=== PATIENT | male | born 1950 | race Caucasian/White ===

== ENCOUNTER 2018-04-07 12:49 | Emergency (ER) | payer MEDICARE ==
[~2018-04-07 12:49] MED LIST: ADVA250A INH; AMLO5TAB2 PO; ASPI81TA22 PO; ATOR20TA15 PO; BILB30CA PO; DIAZ10TA PO; GABA300C5 PO; GLIM2TAB PO; IBUP1TAB5 PO; LAMO100T PO; LEVEMIR SQ; LISI10TA3 PO; METF500T PO; METO1TAB9 PO; NOVOLOGP2 SQ; OXYC-395 PO; OXYC1TAB36 PO; PANT40TA3 PO; SERT-129 PO; TAMS5CAP PO; TRAZ100T10 PO
[2018-04-07 12:58] VITALS: BP 170/78; PULSE 92; RESP 19; TEMP 98.4; O2SAT 98
[2018-04-07 13:21] VITALS: O2SAT 98
[2018-04-07 13:32] LABS: AUTOMATED NEUTROPHIL # 5.1 TH/MM3 (1.8-7.7); BASOPHIL % 0.7 % (0.0-2.0); EOSINOPHIL # 0.1 TH/MM3 (0-0.4); EOSINOPHIL % 1.9 % (0.0-4.0); HEMATOCRIT 43.2 % (39.0-51.0); HEMOGLOBIN 14.9 GM/DL (13.0-17.0); LYMPH % 20.8 % (9.0-44.0); LYMPHOCYTE # 1.5 TH/MM3 (1.0-4.8); MEAN CORPUSCULAR HEMOGLOBIN 30.5 PG (27.0-34.0); MEAN CORPUSCULAR HGB CONC 34.6 % (32.0-36.0); MEAN PLATELET VOLUME 7.5 FL (7.0-11.0); MONO % 5.9 % (0.0-8.0); MONOCYTE # 0.4 TH/MM3 (0-0.9); NEUT % 70.7 % (16.0-70.0); PLATELET COUNT 221 TH/MM3 (150-450); RED BLOOD COUNT 4.91 MIL/MM3 (4.50-5.90); RED CELL DISTRIBUTION WIDTH 14.2 % (11.6-17.2); WHITE BLOOD COUNT 7.2 TH/MM3 (4.0-11.0)
[2018-04-07 13:58] LABS: BICARBONATE 25.5 MEQ/L (21.0-32.0); BLOOD UREA NITROGEN 17 MG/DL (7-18); CALCIUM 8.9 MG/DL (8.5-10.1); CHLORIDE 107 MEQ/L (98-107); CREATININE 1.22 MG/DL (0.60-1.30); GLOMERULAR FILTRATION RATE 60 ML/MIN (>89); GLUCOSE,RANDOM 249 MG/DL (74-106); SODIUM (NA) 141 MEQ/L (136-145); TROPONIN I LESS THAN 0.02 NG/ML (0.02-0.05)
--- NOTE | 2018-04-07 14:08 | RADRPT ---
EXAM DATE: 04/07/2018 1:56 PM EDT AGE/SEX: 67 years / Male INDICATIONS: Short of breath. CLINICAL DATA: This is the patient's initial encounter. Patient reports that signs and symptoms have been present for 1 day and indicates a pain score of 0/10. MEDICAL/SURGICAL HISTORY: Emphysema. On O2 sometimes None. [place] [facility] [place]. . FINDINGS: Mild airspace disease at the left lung base. Cardiomediastinal contours are stable. Osseous structure s are intact. CONCLUSION: 1. Left lung base airspace disease which likely reflects atelectasis. Differential considerations in clude pneumonia and aspiration in the appropriate clinical setting. Electronically signed by: Roberto Singh MD 04/07/2018 2:06 PM EDT
[2018-04-07 14:14] VITALS: BP 158/84; PULSE 106; RESP 18; O2SAT 98
--- NOTE | 2018-04-07 14:43 | PD ---
HPI Chief Complaint: General Weakness Time Seen by Provider: 14:04 Travel History International Travel<30 days: No Contact w/Intl Traveler<30days: No History of Present Illness HPI Patient is a 67-year-old male presenting to the emergency department for evaluation of dizziness. Patient states he felt dizzy this morning, he reports falling and hitting his head. He states he does not remember what happened initially after the fall. He denies any nausea, vomiting, shortness of breath, visual changes. Patient called 911 himself. He states immediately after he fell he experienced chest pain in the right anterior chest wall. He then reported that the same chest pain has been present for 2 weeks and he felt a lump on his chest. Patient states the pain is reproducible on palpation. Patient reports a history of chronic back pain, he takes oxycodone for this. He also reportedly smokes marijuana occasionally. He states he rolled a joint this morning but did not smoke it. Per the triage assessment patient stated that he felt weak couldn't walk, his heart stopped earlier, he also reportedly smoked pot laced with heroin 1 week ago, headaches x weeks. He stated to me that the headache just started after he fell today. He also reported that he could not remember what happened immediately after the fall but then started talking about the chest pain when he fell. Patient's story continues to change as he is interviewed. PFSH Past Medical History Bipolar Disorder: Yes Depression: Yes High Cholesterol: Yes COPD: Yes Diabetes: Yes Patient Takes Glucophage: Yes Diminished Hearing: No GERD: Yes Hypertension: Yes Insomnia: Yes Musculoskeletal: Yes (back,legs arms) Neurologic: No Psychiatric: Yes (DELUSIONS, DEPRESSION, ANXIETY) Respiratory: Yes Migraines: Yes Triglycerides - High: Yes Tetanus Vaccination: > 5 Years Past Surgical History Pacemaker: No Other Surgery: Yes (2 back surgerys) Social History Alcohol Use: No Tobacco Use: No Substance Use: No Allergies-Medications (Allergen,Severity, Reaction): Coded Allergies: ciprofloxacin (Unverified Allergy, Severe, RASHES, 04/07/18) penicillin G (Unverified Allergy, Severe, RASH, 04/07/18) *MDRO Multi-Drug Resistant Organism (Verified Adverse Reaction, Unknown, ) MRSA (sputum) - 11/2012, 12/2012 MRSA PCR Screen #1 - NEGATIVE, 03/09/2015 Reported Meds & Prescriptions Reported Meds & Active Scripts Active Ibuprofen 400 Mg Tab 400 Mg PO Q8H PRN Flomax (Tamsulosin HCl) 0.4 Mg Cap 0.4 Mg PO HS Reported Trazodone (Trazodone HCl) 100 Mg Tablet 100 Mg PO BID Sertraline (Sertraline HCl) 100 Mg Tab 100 Mg PO DAILY Pantoprazole (Pantoprazole Sodium) 40 Mg Tab 40 Mg PO DAILY Novolog Inj (Insulin Aspart) 1,000 Unit/10 Ml Vial 20 Units SQ Metoprolol Succinate ER 24 HR (Metoprolol Succinate) 50 Mg Tab 50 Mg PO BID Metformin (Metformin HCl) 500 Mg Tab 500 Mg PO BIDPC Lisinopril 10 Mg Tab 10 Mg PO DAILY Levemir Inj (Insulin Detemir) 1,000 unit/ 10 ML Vial 10 Units SQ BID Do not mix with any other Insulin. Lamotrigine 100 Mg Tab 100 Mg PO DAILY Oxycodone-Acetaminophen 10-325 mg Tab 1 Tab PO Q8HR PRN Glimepiride 2 Mg Tab 2 Mg PO DAILY Take with breakfast or first main meal Gabapentin 300 Mg Cap 300 Mg PO TID Diazepam 10 Mg Tab 10 Mg PO TID PRN Bilberry Extract 30 Mg Cap 500 Mg PO BID Atorvastatin (Atorvastatin Calcium) 20 Mg Tab 20 Mg PO DAILY Aspirin EC Low Dose (Aspirin) 81 Mg Tabec 81 Mg PO DAILY Amlodipine (Amlodipine Besylate) 5 Mg Tab 5 Mg PO DAILY Advair Diskus Inh (Fluticasone-Salmeterol Inh) 250-50 Mcg/Blist Aer 1 Puff INH BID Rinse mouth after use. Advair Diskus Inh (Fluticasone-Salmeterol Inh) 250-50 Mcg/Blist Aer 1 Puff INH BID Rinse mouth after use. Oxycodone (Oxycodone HCl) 10 Mg Tab 10 Mg PO Q6H PRN Review of Systems Except as stated in HPI: all other systems reviewed are Neg Eyes: No: Blurred Vision HENT: Positive: Headaches, Lightheadedness Cardiovascular: Positive: Chest Pain or Discomfort Respiratory: No: Shortness of Breath Gastrointestinal: No: Nausea, Abdominal Pain Neurologic: Positive: Dizziness Physical Exam Exam Limitations: Poor Historian Narrative GENERAL: Overweight, well-developed, alert male. Presenting in no acute distress. SKIN: Warm and dry. HEAD: Atraumatic. Normocephalic. EYES: Pupils equal and round. No scleral icterus. No injection or drainage. ENT: No nasal bleeding or discharge. Mucous membranes pink and moist. NECK: Trachea midline. No JVD. CARDIOVASCULAR: Regular rate and rhythm. RESPIRATORY: No accessory muscle use. Clear to auscultation. Breath sounds equal bilaterally. GASTROINTESTINAL: Abdomen soft, non-tender, nondistended. Hepatic and splenic margins not palpable. MUSCULOSKELETAL: Extremities without clubbing, cyanosis, or edema. No obvious deformities. NEUROLOGICAL: Awake and alert. No obvious cranial nerve deficits. Motor grossly within normal limits. Five out of 5 muscle strength in the arms and legs. Normal speech. PSYCHIATRIC: Appropriate mood and affect; insight and judgment normal. Data Data Last Documented VS Vital Signs Date Time Temp Pulse Resp B/P (MAP) Pulse Ox O2 Delivery O2 Flow Rate FiO2 04/07/18 17:11 106 18 149/76 (100) 97 Room Air 04/07/18 12:58 98.4 Orders Orders Electrocardiogram (04/07/18 13:05) Complete Blood Count With Diff (04/07/18 13:05) Basic Metabolic Panel (Bmp) (04/07/18 13:05) Ckmb (Isoenzyme) Profile (04/07/18 13:05) Troponin I (04/07/18 13:05) Chest, Single Ap (04/07/18 13:05) Iv Access Insert/Monitor (04/07/18 13:05) Ecg Monitoring (04/07/18 13:05) Oxygen Administration (04/07/18 13:05) Oximetry (04/07/18 13:05) CKMB (04/07/18 13:26) CKMB% (04/07/18 13:26) Urinalysis - C+S If Indicated (04/07/18 14:15) Drug Screen, Random Urine (04/07/18 14:15) Ct Brain W/O Iv Contrast(Rout) (04/07/18 ) Case Management Consult (04/07/18 ) Diet Heart Healthy (04/07/18 Dinner) Ed Discharge Order (04/07/18 18:09) Labs Laboratory Tests Test 04/07/18 13:26 04/07/18 15:19 White Blood Count 7.2 TH/MM3 Red Blood Count 4.91 MIL/MM3 Hemoglobin 14.9 GM/DL Hematocrit 43.2 % Mean Corpuscular Volume 88.0 FL Mean Corpuscular Hemoglobin 30.5 PG Mean Corpuscular Hemoglobin Concent 34.6 % Red Cell Distribution Width 14.2 % Platelet Count 221 TH/MM3 Mean Platelet Volume 7.5 FL Neutrophils (%) (Auto) 70.7 % Lymphocytes (%) (Auto) 20.8 % Monocytes (%) (Auto) 5.9 % Eosinophils (%) (Auto) 1.9 % Basophils (%) (Auto) 0.7 % Neutrophils # (Auto) 5.1 TH/MM3 Lymphocytes # (Auto) 1.5 TH/MM3 Monocytes # (Auto) 0.4 TH/MM3 Eosinophils # (Auto) 0.1 TH/MM3 Basophils # (Auto) 0.0 TH/MM3 CBC Comment DIFF FINAL Differential Comment Blood Urea Nitrogen 17 MG/DL Creatinine 1.22 MG/DL Random Glucose 249 MG/DL Calcium Level 8.9 MG/DL Sodium Level 141 MEQ/L Potassium Level 4.3 MEQ/L Chloride Level 107 MEQ/L Carbon Dioxide Level 25.5 MEQ/L Anion Gap 9 MEQ/L Estimat Glomerular Filtration Rate 60 ML/MIN Total Creatine Kinase 121 U/L Creatine Kinase MB 2.4 NG/ML Troponin I LESS THAN 0.02 NG/ML Urine Color YELLOW Urine Turbidity CLEAR Urine pH 5.0 Urine Specific [place] 1.025 Urine Protein 100 mg/dL Urine Glucose (UA) >=500 mg/dL Urine Ketones NEG mg/dL Urine Occult Blood NEG Urine Nitrite NEG Urine Bilirubin NEG Urine Urobilinogen 2.0 mg/dL Urine Leukocyte Esterase NEG Urine RBC 1 /hpf Urine WBC LESS THAN 1 /hpf Urine Squamous Epithelial Cells <1 /hpf Urine Hyaline Casts 1 /lpf Urine Mucus FEW /lpf Microscopic Urinalysis Comment CULT NOT INDICATED Urine Opiates Screen NEG Urine Barbiturates Screen NEG Urine Amphetamines Screen NEG Urine Benzodiazepines Screen POS Urine Cocaine Screen NEG Urine Cannabinoids Screen NEG [facility] Medical Decision Making Medical Screen Exam Complete: Yes Emergency Medical Condition: Yes Interpretation(s) Last Impressions Chest X-Ray 04/07/18 1305 Signed Impressions: CONCLUSION: 1. Left lung base airspace disease which likely reflects atelectasis. Differen tial considerations include pneumonia and aspiration in the appropriate clinica l setting. Head CT 6/18/18 0000 Signed Impressions: CONCLUSION: 1. Stable senescent changes. No acute intracranial abnormality. Laboratory Tests Test 04/07/18 13:26 04/07/18 15:19 White Blood Count 7.2 TH/MM3 Red Blood Count 4.91 MIL/MM3 Hemoglobin 14.9 GM/DL Hematocrit 43.2 % Mean Corpuscular Volume 88.0 FL Mean Corpuscular Hemoglobin 30.5 PG Mean Corpuscular Hemoglobin Concent 34.6 % Red Cell Distribution Width 14.2 % Platelet Count 221 TH/MM3 Mean Platelet Volume 7.5 FL Neutrophils (%) (Auto) 70.7 % Lymphocytes (%) (Auto) 20.8 % Monocytes (%) (Auto) 5.9 % Eosinophils (%) (Auto) 1.9 % Basophils (%) (Auto) 0.7 % Neutrophils # (Auto) 5.1 TH/MM3 Lymphocytes # (Auto) 1.5 TH/MM3 Monocytes # (Auto) 0.4 TH/MM3 Eosinophils # (Auto) 0.1 TH/MM3 Basophils # (Auto) 0.0 TH/MM3 CBC Comment DIFF FINAL Differential Comment Blood Urea Nitrogen 17 MG/DL Creatinine 1.22 MG/DL Random Glucose 249 MG/DL Calcium Level 8.9 MG/DL Sodium Level 141 MEQ/L Potassium Level 4.3 MEQ/L Chloride Level 107 MEQ/L Carbon Dioxide Level 25.5 MEQ/L Anion Gap 9 MEQ/L Estimat Glomerular Filtration Rate 60 ML/MIN Total Creatine Kinase 121 U/L Creatine Kinase MB 2.4 NG/ML Troponin I LESS THAN 0.02 NG/ML Urine Color YELLOW Urine Turbidity CLEAR Urine pH 5.0 Urine Specific [place] 1.025 Urine Protein 100 mg/dL Urine Glucose (UA) >=500 mg/dL Urine Ketones NEG mg/dL Urine Occult Blood NEG Urine Nitrite NEG Urine Bilirubin NEG Urine Urobilinogen 2.0 mg/dL Urine Leukocyte Esterase NEG Urine RBC 1 /hpf Urine WBC LESS THAN 1 /hpf Urine Squamous Epithelial Cells <1 /hpf Urine Hyaline Casts 1 /lpf Urine Mucus FEW /lpf Microscopic Urinalysis Comment CULT NOT INDICATED Urine Opiates Screen NEG Urine Barbiturates Screen NEG Urine Amphetamines Screen NEG Urine Benzodiazepines Screen POS Urine Cocaine Screen NEG Urine Cannabinoids Screen NEG Vital Signs Date Time Temp Pulse Resp B/P (MAP) Pulse Ox O2 Delivery O2 Flow Rate FiO2 04/07/18 13:21 98 Room Air 04/07/18 13:21 98 04/07/18 12:58 98.4 92 19 170/46 (859) 01 Differential Diagnosis Contusion versus concussion versus hemorrhage versus metabolic abnormality versus substance abuse versus malingering versus other Narrative Course Patient is a 67-year-old male presenting to the emergency department with multiple different medical complaints. Patient's vital signs are stable. Labs and imaging ordered and pending. IV access established, patient was placed on telemetry monitoring continuous pulse oximetry. Labs reviewed, no acute findings identified. Urinalysis unremarkable. Head CT shows no acute findings. X-ray of the chest shows atelectasis in the left lung base. Differential could include aspiration versus pneumonia. Patient has no signs of infection, he is well oxygenated, there is no cough. Discussed findings with my attending physician. There are no acute findings today. Patient does report multiple frequent falls, case management was consulted for home health, physical therapy and nursing. Patient is resting comfortably. His vital signs remained stable. Home health [id number] was completed, case management was consulted for home health, mcc and physical therapy. cnc manager has set up for home health. Patient will be discharged home, he was encouraged to follow-up with Dr. Boss closely. He was advised to avoid mixing narcotics, benzodiazepines and marijuana as these could likely increase his risk of falls. Patient verbalized understanding of discharge instructions. Patient is stable for discharge. Diagnosis Primary Impression: Frequent falls Additional Impressions: COPD (chronic obstructive pulmonary disease) Qualified Codes: J44.9 - Chronic obstructive pulmonary disease, unspecified At risk for side effect of medication At risk for self care deficit Referrals: Primary Care Physician 1 week Patient Instructions: General Instructions Additional Instructions: Follow-up with Dr. Boss Avoid taking narcotic pain medication, benzodiazepines and using marijuana at the same time. This can drastically increase her risk of falls. Maintain adequate fluid intake Eat regular meals Continue home medications Return to emergency department for any new or worsening symptoms Med/Other Pt SpecificInfo: No Change to Meds Disposition: DISCH W/HOME HEALTH SERVICE Condition: Stable Kacy Israel Addis WARD Apr 07, 2018 14:43
--- NOTE | 2018-04-07 15:40 | RADRPT ---
EXAM DATE: 04/07/2018 3:37 PM EDT AGE/SEX: 67 years / Male INDICATIONS: Patient complains of dizziness, headache. CLINICAL DATA: This is the patient's initial encounter. Patient reports that signs and symptoms have been present for 1 day and indicates a pain score of 4/10. MEDICAL/SURGICAL HISTORY: Hypertension. Chronic obstructive pulmonary disease. Diabetes. None. RADIATION DOSE: 46.77 CTDI (mGy) COMPARISON: [facility] – [place], [place] BRAIN W/O CONTRAST, 12/05/2012. . TECHNIQUE: CT of the head without contrast. Using automated exposure control and adjustment of the mA and/or kV according to patient size, radiation dose was kept as low as reasonably achievable to ob tain optimal diagnostic quality images. DICOM format image data is available electronically for revi ew and comparison. FINDINGS: Cerebrum: Moderate diffuse cerebral atrophy. The ventricles are normal for degree of atrophy. No heath dence of midline shift, mass lesion, hemorrhage or acute infarction. No extraaxial fluid collections are seen. Posterior Fossa: The cerebellum and brainstem are intact. The 4th ventricle is midline. The cerebe llopontine angle is unremarkable. Extracranial: The visualized portion of the orbits is intact. Small mucous retention cyst in the rig ht maxillary sinus. Skull: The calvaria is intact. No evidence of skull fracture. CONCLUSION: 1. Stable senescent changes. No acute intracranial abnormality. Electronically signed by: Roberto Singh MD 04/07/2018 3:39 PM EDT
[2018-04-07 15:42] LABS: BILIRUBIN, URINE NEG (NEG); BLOOD, URINE NEG (NEG); GLUCOSE,URINE >=500 mg/dL (NEG); HYALINE CAST, URINE 1 /lpf (RARE); KETONE, URINE NEG (NEG); MUCUS URINE FEW /lpf (OCC); NITRITE,URINE NEG (NEG); SQUAMOUS EPITHELIAL CELL URINE <1 /hpf (0-5); URINE COLOR YELLOW (YELLW/STRAW); URINE LEUKOCYTE ESTERASE NEG (NEG)
--- NOTE | 2018-04-07 16:16 | PD ---
Physical Exam Date Seen by Provider: Apr 07, 2018 Narrative Patient presents for evaluation of frequent falls. This is been an ongoing problem for him. He relates his frequent falls to chronic back problems. I have proposed the possibility of admission to a group home. Data Data Last Documented VS Vital Signs Date Time Temp Pulse Resp B/P (MAP) Pulse Ox O2 Delivery O2 Flow Rate FiO2 04/07/18 20:05 04/07/18 17:11 106 18 97 Room Air 04/07/18 12:58 98.4 Orders Orders Electrocardiogram (04/07/18 13:05) Complete Blood Count With Diff (04/07/18 13:05) Basic Metabolic Panel (Bmp) (04/07/18 13:05) Ckmb (Isoenzyme) Profile (04/07/18 13:05) Troponin I (04/07/18 13:05) Chest, Single Ap (04/07/18 13:05) Iv Access Insert/Monitor (04/07/18 13:05) Ecg Monitoring (04/07/18 13:05) Oxygen Administration (04/07/18 13:05) Oximetry (04/07/18 13:05) CKMB (04/07/18 13:26) CKMB% (04/07/18 13:26) Urinalysis - C+S If Indicated (04/07/18 14:15) Drug Screen, Random Urine (04/07/18 14:15) Ct Brain W/O Iv Contrast(Rout) (04/07/18 ) Case Management Consult (04/07/18 ) Diet Heart Healthy (04/07/18 Dinner) Ed Discharge Order (04/07/18 18:09) Labs Laboratory Tests Test 04/07/18 13:26 04/07/18 15:19 White Blood Count 7.2 TH/MM3 Red Blood Count 4.91 MIL/MM3 Hemoglobin 14.9 GM/DL Hematocrit 43.2 % Mean Corpuscular Volume 88.0 FL Mean Corpuscular Hemoglobin 30.5 PG Mean Corpuscular Hemoglobin Concent 34.6 % Red Cell Distribution Width 14.2 % Platelet Count 221 TH/MM3 Mean Platelet Volume 7.5 FL Neutrophils (%) (Auto) 70.7 % Lymphocytes (%) (Auto) 20.8 % Monocytes (%) (Auto) 5.9 % Eosinophils (%) (Auto) 1.9 % Basophils (%) (Auto) 0.7 % Neutrophils # (Auto) 5.1 TH/MM3 Lymphocytes # (Auto) 1.5 TH/MM3 Monocytes # (Auto) 0.4 TH/MM3 Eosinophils # (Auto) 0.1 TH/MM3 Basophils # (Auto) 0.0 TH/MM3 CBC Comment DIFF FINAL Differential Comment Blood Urea Nitrogen 17 MG/DL Creatinine 1.22 MG/DL Random Glucose 249 MG/DL Calcium Level 8.9 MG/DL Sodium Level 141 MEQ/L Potassium Level 4.3 MEQ/L Chloride Level 107 MEQ/L Carbon Dioxide Level 25.5 MEQ/L Anion Gap 9 MEQ/L Estimat Glomerular Filtration Rate 60 ML/MIN Total Creatine Kinase 121 U/L Creatine Kinase MB 2.4 NG/ML Troponin I LESS THAN 0.02 NG/ML Urine Color YELLOW Urine Turbidity CLEAR Urine pH 5.0 Urine Specific [place] 1.025 Urine Protein 100 mg/dL Urine Glucose (UA) >=500 mg/dL Urine Ketones NEG mg/dL Urine Occult Blood NEG Urine Nitrite NEG Urine Bilirubin NEG Urine Urobilinogen 2.0 mg/dL Urine Leukocyte Esterase NEG Urine RBC 1 /hpf Urine WBC LESS THAN 1 /hpf Urine Squamous Epithelial Cells <1 /hpf Urine Hyaline Casts 1 /lpf Urine Mucus FEW /lpf Microscopic Urinalysis Comment CULT NOT INDICATED Urine Opiates Screen NEG Urine Barbiturates Screen NEG Urine Amphetamines Screen NEG Urine Benzodiazepines Screen POS Urine Cocaine Screen NEG Urine Cannabinoids Screen NEG MDM Supervised Visit with STACY: Yes Narrative Course CBC & BMP Diagram 04/07/18 13:26 Calcium Level 8.9 Last Impressions Chest X-Ray 04/07/18 1305 Signed Impressions: CONCLUSION: 1. Left lung base airspace disease which likely reflects atelectasis. Differen tial considerations include pneumonia and aspiration in the appropriate clinica l setting. Head CT 04/07/18 0000 Signed Impressions: CONCLUSION: 1. Stable senescent changes. No acute intracranial abnormality. UA is negative for infection. Drug screen is positive for benzodiazepines. This patient does not meet any criteria for admission. We will talk with case management to see if they have anything to offer him. Diagnosis Primary Impression: Frequent falls Viviane Tinoco MD Apr 07, 2018 16:16
--- NOTE | 2018-04-07 16:51 | HHI.FF ---
Face to Face Verification Diagnosis: (1) Frequent falls (2) COPD (chronic obstructive pulmonary disease) (3) DM (diabetes mellitus) (4) Back pain (5) Hypertension (6) Depression (7) Bipolar disorder Physical Therapy Order: Evaluate and Treat, Improve ambulation, Strength and gait training Home Health Nursing Order: Medical education Signs/symptoms of disease process Medication education-adverse effect Nursing assessment with vital signs Home Health Aide Order: To Assist In: Bathing and personal care Pharmacy Intake Coordinator Order: To Evaluate: Living conditions/environment, Support services Order: To Provide: Long range planning I have seen patient Daron Alvarez on 04/07/18. My clinical findings support the need for the requested home health care services because: Ltd mobility - disease progression Patient has SOB Med compliance is questionable Impaired cognition/judgement High risk of falls I certify that my clinical findings support that this patient is homebound because: Impaired cognitive ability/safety Hx COPD- exertion dyspnea/weakness Unsteady gait/balance Unsafe to leave home unassisted Unable to use public transportation Kacy Israel Apr 07, 2018 16:51
[2018-04-07 17:11] VITALS: BP 149/76; PULSE 106; RESP 18; O2SAT 97
--- NOTE | 2018-04-08 17:06 | EKG ---
Date Performed: 04/07/2018 Time Performed: 13:10:21 PTAGE: 67 years EKG: Sinus rhythm ARM LEADS REVERSED ATYPICAL ECG PREVIOUS TRACING : 11/28/2016 13.03 Since the previous tracing, no significant change noted DOCTOR: Nanda Alvarez Interpretating Date/Time 04/08/2018 17:02:43
== END 2018-04-07 20:05 | disposition home health service (06) ==
LOC: NEDAMB 12:49 → MERGE 12:49 → NEDAMB 20:05
DX: J44.9 Chronic obstructive pulmonary disease, unspecified (principal); R07.9 Chest pain, unspecified; G89.29 Other chronic pain; M54.9 Dorsalgia, unspecified; F12.90 Cannabis use, unspecified, uncomplicated; R51 Headache; F41.8 Other specified anxiety disorders; E78.00 Pure hypercholesterolemia, unspecified; E11.9 Type 2 diabetes mellitus without complications; K21.9 Gastro-esophageal reflux disease without esophagitis; I10 Essential (primary) hypertension; G47.00 Insomnia, unspecified; E66.3 Overweight; W19.XXXA Unspecified fall, initial encounter; Z79.4 Long term (current) use of insulin; Z91.81 History of falling; Z88.0 Allergy status to penicillin; Z88.1 Allergy status to other antibiotic agents; F19.90 Other psychoactive substance use, unspecified, uncomplicated
CPT/HCPCS: 70450; 71045; 80048; 80307; 81001; 82550; 82552; 84484; 85025; 93005; 99285